=== PATIENT | female | born 1955 | race Caucasian/White ===

== ENCOUNTER → 2019-01-14 08:55 | Outpatient (CLI) | payer OTHER, SELFPAY ==
--- NOTE | 2019-01-14 09:17 | CI_ITS ---
Cerebrovascular Exam Indications: 785.9 Bruit. IMPRESSIONS 1. The bilateral vertebral arteries are patent with normal antegrade flow. 2. Study suggests less than 20% stenosis involving the right internal carotid artery and the left internal carotid artery. Carotid duplex study. Complete study and Doppler flow study including spectral analysis, color and casey scale imaging. Height: Height: 170.2cm. Height: 67in. Weight: Weight: 68kg. Weight: 149.7lb. Body mass index: BMI: 23.5kg/m^2. Body surface area: BSA: 1.8m^2. Tables: Arterial flow: + +--------+--------+ Location V sys V ed + +--------+--------+ Right CCA - proximal 96.2cm/s 30.8cm/s + +--------+--------+ Right CCA - distal 82.3cm/s 26.4cm/s + +--------+--------+ Right ECA 74.2cm/s -------- + +--------+--------+ Right ICA - proximal 79.1cm/s 32.4cm/s + +--------+--------+ Right ICA - mid 87.9cm/s 34.9cm/s + +--------+--------+ Right ICA - distal 81.5cm/s 40.8cm/s + +--------+--------+ Right vertebral 45.3cm/s -------- + +--------+--------+ Left CCA - proximal 93cm/s 30.8cm/s + +--------+--------+ Left CCA - distal 74.2cm/s 24.6cm/s + +--------+--------+ Left ECA 74.6cm/s -------- + +--------+--------+ Left ICA - proximal 68.8cm/s 24.6cm/s + +--------+--------+ Left ICA - mid 85.4cm/s 38.3cm/s + +--------+--------+ Left ICA - distal 85cm/s 29.5cm/s + +--------+--------+ Left vertebral 52.1cm/s -------- + +--------+--------+ (Report amended ) Electronically signed by: Scott Romo [id number]
--- NOTE | 2019-01-14 09:18 | CA_ITS ---
PROCEDURE: 2-D M-mode and color Doppler study INDICATIONS FOR THE TEST: Chest pain COPD Heart MurmurX Tobacco Smoking Palpitations Fatigue SyncopeX Edema HypertensionXDiabetes Mellitus Rheumatic Fever SOB VANCE Obesity Hyperlipidemia Family History HD Additional History PATIENT INFORMATION HEIGHT: 69 WEIGHT:150 GENDER: Female B/P:142/86 2-D/M-MODE INTERPRETATION: 2-D MEASUREMENTS OBSERVED VALUES IN CMS Right Ventricular Dimension (RVDd) 1.2 Interventricular Septum (Thickness)(IVsd) 1.1 Left Ventricular Internal Dimensions(LVIDd) 4.1 Left Ventricular Posterior Wall (Thickness)(LVPWd) 1.2 Aortic Root 3.0 Aortic Cusp Separation 1.9 Left Atrial Dimensions (LAD) 2.7 2D 1. Left atrium is mildly enlarged, left ventricle is normal size, mild concentric left ventricular hypertrophy, there is asymmetrical basal septal hypertrophy is also seen. There is preserved left ventricular systolic function, visually estimated ejection fraction of 55% with no regional wall motion abnormality. 2. The right atrium and right ventricle are normal size and contractility. 3. The aortic valve is minimally thickened and fibrosed. 4. The mitral valve leaflets are minimally thickened, there is no mitral stenosis, there is mild systolic anterior motion of the mitral valve leaflets seen. 5. The tricuspid valve is grossly normal. 6. The pulmonic valve is poorly visualized. 7. No significant pericardial effusion noted. DOPPLER INTERROGATION: Doppler interrogation of the aortic, mitral and tricuspid valvular presence of moderate mitral and mild tricuspid regurgitation, tricuspid regurgitation jet velocity is inadequate for calculation of the right ventricular systolic pressure, grade 1 diastolic dysfunction seen without tissue Doppler evidence of raised left atrial pressure. There is no dynamic left ventricular outflow track obstruction seen. CONCLUSION: 1. Mildly enlarged left atrium, normal left ventricular size, mild concentric left ventricular hypertrophy, there is asymmetrical basal septal hypertrophy seen, visually estimated ejection fraction of 55% with no regional wall motion abnormality, grade 1 diastolic dysfunction seen without tissue Doppler evidence of raised left atrial pressure. 2. Mild systolic atrium motion of the mitral valve leaflets seen, there is no dynamic left ventricular outflow track obstruction seen, there is moderate mitral regurgitation 3. Mild tricuspid regurgitation 4. No significant pericardial effusion noted.
== END ==
PROVIDERS: PCP Nurse Practitioner Family; Visit Provider Nurse Practitioner Family
DX: R55 Syncope and collapse (principal); R01.1 Cardiac murmur, unspecified
CPT/HCPCS: 93306; 93880

== ENCOUNTER → 2019-10-25 11:16 | Outpatient (CLI) | payer OTHER, SELFPAY ==
--- NOTE | 2019-10-25 11:26 | XR_ITS ---
PROCEDURE: XR HIP RT 2-3V W/PELVIS CLINICAL INDICATION: PAIN IN RT HIP COMPARISON: [id number] HIP LT 2-3V W/PELVIS IF PERFOR from 02/02/2016 FINDINGS: No fracture or dislocation is evident. No significant degenerative change. No lytic or blastic change. Unremarkable soft tissues. Surgical clips are present overlying the mid SI joint region IMPRESSION: Negative right hip Dictated by: Scott Romo MD 10/25/2019 17:59 Electronically signed by Scott Romo MD in [place] 10/25/2019 17:59
== END ==
PROVIDERS: PCP Nurse Practitioner; Visit Provider Nurse Practitioner
DX: M25.551 Pain in right hip (principal)
CPT/HCPCS: 73502

== ENCOUNTER 2022-05-14 10:17 | Emergency (ER) | payer MEDICARE, SELFPAY ==
[2022-05-14 12:00] VITALS: BP 140/88; PULSE 101; RESP 19; TEMP 37.7; O2SAT 98; BMI 25.2
--- NOTE | 2022-05-14 12:06 | HMH.EDUTC ---
[facility] Disposition Clinical Impression: COVID-19 Disposition: Home, Self-Care Condition on Discharge: Good Instructions: DI for COVID-19 (Suspected or Confirmed ) Additional Instructions: Current CDC guidelines are to quarantine for 5 days from onset of symptoms and until symptom free, then mask for an additional 5 days Prescriptions: Guaifenesin/Dextromethorphan [Mucinex Dm ER 1,200-60 mg Tab] 1 tab PO BID 10 Days #20 tab Transmission Status: Pending to [facility] Albuterol Sulfate [Proair Hfa] 2 inh IH Q4HP PRN 30 Days #1 each PRN Reason: Shortness Of Breath Transmission Status: Pending to [facility] Referrals: Laina David [Primary Care Provider] - Forms: Work/School Release Time of Disposition: 12:18 Medical Decision Making - Marek Inquiry Pt receiving controlled substance: No [facility] [place] HPI - General Stated complaint: covid pos 05/13, h/a, congestion, cough, body ache Time Seen by Provider: 05/14/22 12:06 - History of Present Illness Provider Complaint: Patient began having cough, body aches, chills, headache, fever 05/12. Took home COVID test X 2 yesterday and both were positive. She is vaccinated. States her fingertips feel tingly and she doesn't feel like she is getting a good breath. No vomiting or diarrhea. Onset (ago): day(s) (2) Location: head, chest Severity: moderate Severity scale (1-10): 4 Consistency: constant Relieving factors: none Exacerbating factors: none Associated symptoms: cough, fever/chills, shortness of breath Treatments prior to arrival: NSAID - Related Data Home Medications Medication Instructions Recorded Confirmed amlodipine 5 mg tablet 5 mg PO DAILY #30 tab 05/27/19 08/23/19 gabapentin 800 mg tablet 800 mg PO QID #120 tab 05/27/19 08/23/19 levothyroxine 25 mcg tablet 25 mcg PO DAILY #30 tab 05/27/19 08/23/19 lisinopril 40 mg tablet 40 mg PO DAILY #30 tab 05/27/19 08/23/19 meclizine 25 mg chewable tablet 25 mg PO TID PRN #45 tab 05/27/19 08/23/19 rosuvastatin 10 mg tablet 10 mg PO DAILY #90 tab 05/27/19 08/23/19 Previous Rx's Medication Instructions Recorded Albuterol Sulfate [Proair Hfa] 2 inh IH Q4HP PRN 30 Days #1 each 05/14/22 Guaifenesin/Dextromethorphan 1 tab PO BID 10 Days #20 tab 05/14/22 [Mucinex Dm ER 1,200-60 mg Tab] Allergies Allergy/AdvReac Type Severity Reaction Status Date / Time Penicillins Allergy Mild Verified 07/18/19 11:28 Sulfa (Sulfonamide Allergy Mild Verified 07/18/19 11:28 Antibiotics) [facility] History - Hepatitis A Screen Attestation statement:: This patient has been screened for Hepatitis A risk factors. I have reviewed the patient's past medical history: Yes Medical History: Reports:: Hyperlipidemia, Hypertension Denies:: Cancer, Diabetes Mellitus Type 1, Diabetes Mellitus Type 2, Internal Pacemaker, Lung Disease, Seizures Other Medical History: Reports: Arthritis Other Surgeries: Yes: Appendectomy. No: Pacemaker Amputation: No Fractures: No - Social History Smoking Status: Never smoker Alcohol Intake: never Alcohol Intake Frequency:: holidays/special occasions only Substance Use Type: denies use Occupational Status: employed Family Hx:: Cancer, Diabetes, Heart Attack, Hyperlipidemia, Hypertension, Stroke ROS Obtained: Yes All systems reviewed & no additional complaints - Constitutional Constitutional: Reports body ache, Reports chills, Reports fever(s), Reports headache(s), Reports malaise, Reports weakness - ENT Ears, Nose, Mouth, and Throat: Reports sore throat - Respiratory Respiratory: Reports chest congestion, Reports cough Physical Exam - General General appearance: alert, in no apparent distress - Head Head exam: atraumatic, normocephalic - Eye Eye exam: Present: PERRL - ENT ENT exam: Present: normal oropharynx, TM's normal bilaterally - Neck Neck exam: Present: normal inspection. Absent: lymphadenopathy - Chest Chest inspection: Present: normal inspection,
[2022-05-14 12:22] VITALS: BP 140/88; PULSE 101; RESP 19; TEMP 37.7; O2SAT 98
== END 2022-05-14 12:28 | disposition home or self-care (01) ==
PROVIDERS: Emergency Provider Physician Assistant; PCP Emergency Medicine
DX: U07.1 COVID-19 (principal); R51.9 Headache, unspecified; R09.81 Nasal congestion; R05.9 Cough, unspecified; M79.10 Myalgia, unspecified site; R50.81 Fever presenting with conditions classified elsewhere; R20.2 Paresthesia of skin; E78.5 Hyperlipidemia, unspecified; I10 Essential (primary) hypertension
CPT/HCPCS: 96372; 99212; G0463; J1040

== ENCOUNTER 2025-03-27 12:28 | Day surgery (SDC) | payer MEDICARE, SELFPAY ==
[2025-03-25 14:35] VITALS: BMI 25.0
[2025-03-27 12:56] VITALS: BP 128/78; PULSE 73; RESP 17; TEMP 36.6; O2SAT 98
[2025-03-27] MEDS: LACTATED RINGERS 1000ML 1,000 ML 50 ML IV (13:03)
--- NOTE | 2025-03-27 13:24 | EXP.ANES.CKL ---
[facility] Disclaimer: The information contained in this section may have been updated after the patient was seen, as this information can be updated by other users. Medical History Thyroid condition Hyperlipidemia HTN (hypertension) Surgical History History of appendectomy Family History Other Lung cancer Social History (Updated 03/27/25 @ 12:52 by Beverly Mckenzie RN) Smoking Status: Never smoker alcohol intake: current alcohol intake frequency: holidays/special occasions only substance use type: denies use current occupational status: employed Travel in the last 8 weeks?: None caffeine: Yes Have you lived/traveled outside [place] in past 30 days?: No Contact w/someone who lives/traveled outside US past 30 days?: No Exposure to someone with infectious disease in past 14 days?: No Do you have a fever (greater than 100.4 F or 38 C)?: No Have you tested positive for COVID-19?: No Exposed to someone with COVID-19 in past 14 days?: No Do you have a sore throat?: No Do you have a cough?: No Do you have any weakness?: No Are you experiencing any nausea/vomitting?: No Do you have any diarrhea?: No Are you experiencing any unusual bleeding?: No Do you have any muscle aches/pain?: No Do you have any abdominal pain?: No Are you experiencing loss of taste or smell?: No [facility] Anesthesia Checklist Patient Identification Patient Identification: Arm Band and Verbal (Name & ) Structural Data Admitted From: Home Planned Operative Procedure/s: Colonoscopy Consent for Planned Operative Procedure(s) Verified: Yes Verified Documents: Surgical Consent NPO Status Verified Time NPO: 00:00 Chart Verification Results Verified: None Additional verifications Anesthesia Reactions: No Airway Assessment Mallampati Score:: Class II C-Spine Mobility Assessed: Yes TMJ Mobility Assessed: Yes Dentition: Good Dentition Neurological Assessment Level of Consciousness: Awake, Alert and Appropriate Hx Seizures: No Numbness or tingling in extremities: No Anesthesia Plan Anesthesia Risk discussed: Yes Anesthesia Plan: Verified ASA Class: II Anesthesia Type: MAC
--- NOTE | 2025-03-27 15:28 | P.HP_ITS ---
History of Present Illness *Admission Date: 03/27/25 *Reason for visit:: Surveillance-personal history of adenomatous colon polyp *History of present illness: Mrs. Manriquez is a 69-year-old female who is here for surveillance colonoscopy secondary to a personal history of adenomatous colon polyp. The examination is deemed medically necessary for surveillance colonoscopy. The patient has been seen, interviewed and examined prior to the procedure by both myself and the anesthesia provider. [facility] Disclaimer: The information contained in this section may have been updated after the nam gibbons was seen, as this information can be updated by other users. Medical History (Updated 03/27/25 @ 15:29 by Jerel Lin II, MD) Thyroid condition Hyperlipidemia HTN (hypertension) Surgical History History of appendectomy Family History Other Lung cancer Social History (Updated 03/27/25 @ 12:52 by Beverly Mckenzie RN) Smoking Status: Never smoker alcohol intake: current alcohol intake frequency: holidays/special occasions only substance use type: denies use current occupational status: employed Travel in the last 8 weeks?: None caffeine: Yes Have you lived/traveled outside US in past 30 days?: No Contact w/someone who lives/traveled outside US past 30 days?: No Exposure to someone with infectious disease in past 14 days?: No Do you have a fever (greater than 100.4 F or 38 C)?: No Have you tested positive for COVID-19?: No Exposed to someone with COVID-19 in past 14 days?: No Do you have a sore throat?: No Do you have a cough?: No Do you have any weakness?: No Are you experiencing any nausea/vomitting?: No Do you have any diarrhea?: No Are you experiencing any unusual bleeding?: No Do you have any muscle aches/pain?: No Do you have any abdominal pain?: No Are you experiencing loss of taste or smell?: No Other Medical History Have you received the Flu Vaccine for this season: No Have you received the Pneumonia Vaccine: No Review of Systems Review of Systems Review of systems (narrative): Negative *Cardiovascular Comments: Negative *Gastrointestinal Comments: Negative *Genitourinary Comments: Negative *Musculoskeletal Comments: Negative *Neurologic Comments: Negative Meds Home Medications and Allergies Home Medications ?Medication ?Instructions ?Recorded ?Confirmed ?Type amlodipine 5 mg tablet 5 mg PO DAILY blood pressure #30 05/27/19 03/27/25 History tabs gabapentin 800 mg tablet 800 mg PO QID Pain #120 tabs 05/27/19 03/27/25 History levothyroxine 25 mcg tablet 25 mcg PO DAILY hypothyroid #30 05/27/19 03/27/25 History tabs lisinopril 40 mg tablet 40 mg PO DAILY Hypertension #30 05/27/19 03/27/25 History tabs meclizine 25 mg chewable tablet 25 mg PO TID PRN Dizziness #45 tabs 05/27/19 03/27/25 History rosuvastatin 10 mg tablet 10 mg PO DAILY Cholesterol #90 tabs 05/27/19 03/27/25 History New Prescriptions to Start Prescriptions: Allergies Allergy/AdvReac Type Severity Reaction Status Date / Time Penicillins Allergy Mild Rash Verified 03/27/25 12:53 Sulfa (Sulfonamide Allergy Mild Rash Verified 03/27/25 12:53 Antibiotics) Exam Data for Last 24 hours Vital signs and Labs for Last 24 Hours: Temp Pulse Resp BP Pulse Ox O2 Del Method 97.8 F 73 17 128/78 98 Room Air 03/27/25 12:56 03/27/25 12:56 03/27/25 12:56 03/27/25 12:56 03/27/25 12:56 03/27/25 12:56 I & O for Last 24 hours: Intake & Output 03/24/25 03/25/25 03/26/25 03/27/25 23:59 23:59 23:59 23:59 Weight 160 lb 0.008 oz *Routine HEENT Exam Head: Present normocephalic Eye: Present EOMI and PERRL ENT: Present mucous membranes moist *Routine Neck Exam Neck: Present supple *Routine Respiratory Exam Respiratory: Present CTA bilaterally *Routine Cardiovascular Exam Cardiovascular: Present RRR *Routine Abdominal Exam Abdominal: Present soft and normoactive bowel sounds; Absent tenderness *Routine Rectal Exam Rectal:: deferred *Routine Genitalia Exam Genitalia:: deferred *Routine Extremities Exam Extremities: Absent cyanosis, clubbing or edema *Routine Skin Exam Skin: Present warm; Absent rash *Routine Neurological Exam Neurological: Present alert and oriented X3 Assessment and Plan *Assessment and plan (1) Personal history of adenomatous and serrated colon polyps: Status: Acute Category: Medical Code(s): Z86.0101 - Personal history of adenomatous and serrated colon polyps Plan A/P: 1. Personal history of adenomatous colon polyp is the preprocedural diagnosis. The patient's last colonoscopy was August 2019 and an adenomatous polyp was removed. The patient will be anesthetized/sedated using MAC sedation. The patient has been seen and examined. Cardiac and lung assessment prior to the examination is stable. Proceed with planned surveillance colonoscopy.
--- NOTE | 2025-03-27 15:30 | P.PCN_ITS ---
[facility] Procedure Note Date: 03/27/25 Time: 15:53 Procedure Note:: Colonoscopy Procedure Report: Colonoscopy with cold snare polypectomy Endoscopist: Jerel Lin II, MD Referring physician: Laina David MD, [address], [address], [place] [address] Date of Procedure: March 27, 2025 Equipment: Olympus 190 variable stiffness pediatric colonoscope Sedation: MAC sedation Indication: Mrs. Manriquez is a 69-year-old female who is here for follow-up surveillance colonoscopy. The patient did have a colonoscopy in August 2019 and had a single polyp (tubular adenoma) removed. She reports no abdominal pain, weight loss, change in her bowel habits or rectal bleeding. She does believe that her father had colon cancer in his 70s. Procedure: Prior to the procedure, a history and physical exam was performed, and patient's medications and allergies were reviewed. The risks, benefits and alternatives of the sedation and procedure were discussed with the patient. All questions were answered and informed consent was obtained. The patient was brought to the procedure room. Patient identification and proposed procedure were verified by the physician and the nurse. The patient was placed in a left lateral decubitus position and the scope was passed under direct vision. Throughout the procedure, the patient's blood pressure, pulse, and oxygen saturations were monitored continuously. The colonoscopy was accomplished without difficulty. The patient tolerated the procedure well. Findings: On digital rectal examination there was normal rectal tone. There were no external hemorrhoids. The colonoscope was introduced through the anal canal to the rectum and advanced to the cecum. The ileocecal valve and appendiceal orifice were identified. The scope was advanced a short distance into the ileum which appeared grossly normal. The scope was then withdrawn into the colon. The cecum and ascending colon were grossly normal. There were 2 polyps (transverse x 1 (5 mm) and descending x 1 (4 mm)). Both of these were removed via cold snare polypectomy. There were scattered diverticuli throughout the descending and sigmoid colon (LEFT colon). The rectum itself was normal. Upon retroflexion within the rectum there were grade 1-2 internal hemorrhoids. The preparation was excellent throughout with [place] Preparation Score of 9. The cecal time was 12 minutes. Impression: 1. Diminutive colonic polyps x 2 2. Left-sided diverticulosis 3. Grade 1-2 internal hemorrhoids Plan: I will follow-up the polyp histology and recommend repeat surveillance colonoscopy again in 7 years based upon the pathology. I would encourage psyllium bulking fiber supplementation on a maintenance basis.
[2025-03-27 16:01] VITALS: BP 89/62; PULSE 72; RESP 16; TEMP 36.1; O2SAT 96
[2025-03-27 16:11] VITALS: BP 103/67; PULSE 66; RESP 16; O2SAT 98
[2025-03-27 16:21] VITALS: BP 108/71; BP 118/68; PULSE 60; PULSE 62; RESP 16; O2SAT 99
== END 2025-03-27 16:24 | disposition home or self-care (01) ==
PROVIDERS: PCP Emergency Medicine; Visit Provider Internal Medicine Gastroenterology
PROC: 0DJD8ZZ Inspection of Lower Intestinal Tract, Via Natural or Artificial Opening Endoscopic (ICD-10-PCS; CPT 45378; principal; 2025-03-27 14:00)
DX: Z12.11 Encounter for screening for malignant neoplasm of colon (principal); Z86.0101 Personal history of adenomatous and serrated colon polyps; D12.4 Benign neoplasm of descending colon; D12.3 Benign neoplasm of transverse colon; K57.30 Diverticulosis of large intestine without perforation or abscess without bleeding; K64.8 Other hemorrhoids
CPT/HCPCS: 45385; J7120